=== PATIENT | female | born 1995 | race Caucasian/White ===

== ENCOUNTER 2021-09-14 09:03 | Day surgery (SDC) | payer OTHER ==
[2021-09-12 15:31] VITALS: BMI 29.7
[2021-09-14] MEDS ORDERED: EPINEPHrine 1:1,000 1,000 MCG/ML ML ONE (11:16)
[2021-09-14] MEDS ORDERED: VANCOMYCIN 1,000 MG VIAL (RESTRICTED TO ID ONLY) ONE (11:16)
[2021-09-14] MEDS ORDERED: BUPIVACAINE HCL 50 ML ONE (13:10)
[2021-09-14] MEDS ORDERED: MIDAZOLAM HCL 2 MG/2 ML SINGLE DOSE VIAL ONE (13:10)
[2021-09-14] MEDS ORDERED: BUPIVACAINE LIPOSOME/PF (EXPAREL) 266 MG/20 ML VIAL ONE (13:10)
[2021-09-14] MEDS ORDERED: SODIUM CHLORIDE 0.9% P/F 10 ML VIAL IJ ONE (13:11)
[2021-09-14] MEDS ORDERED: PROPOFOL 20 ML ONE ×2 (13:24)
[2021-09-14] MEDS ORDERED: KETOROLAC TROMETHAMINE 30 MG/1 ML VIAL ONE (13:25)
[2021-09-14] MEDS ORDERED: ONDANSETRON 4 MG/2 ML VIAL ONE ×3 (13:25→17:28)
[2021-09-14] MEDS ORDERED: ceFAZolin SODIUM 1 GM VIAL ONE (13:25)
[2021-09-14] MEDS ORDERED: DEXAMETHASONE SOD PHOSPHATE 4 MG/1 ML VIAL ONE (13:25)
[2021-09-14] MEDS ORDERED: TRANEXAMIC ACID 1000 MG/10 ML VIAL ONE (13:53)
[2021-09-14] MEDS ORDERED: BUPIVACAINE HCL/PF 0.25% (2.5MG/ML) 10 ML VIAL IJ ONE (14:30)
[2021-09-14] MEDS ORDERED: ESMOLOL HCL 100,000 MCG/10 ML VIAL ONE (15:18)
[2021-09-14] MEDS ORDERED: ONDANSETRON 4 MG/2 ML VIAL IVPUSH PRN (15:58)
[2021-09-14] MEDS ORDERED: oxyCODONE HCL 5 MG TABLET PO PRN (15:58)
[2021-09-14] MEDS ORDERED: ASPIRIN 81 MG CHEWABLE TABLETS PO ONE (15:58)
[2021-09-14] MEDS ORDERED: LACTATED RINGERS SOLUTION 1,000 ML IV SCH (16:00)
[2021-09-14 17:42] VITALS: PULSE 94
[2021-09-14 18:56] VITALS: BP 136/83; TEMP 97.8
== END 2021-09-14 18:57 | disposition home or self-care (01) ==
LOC: FASU 09:03
PROVIDERS: ATTEND Orthopaedic Surgery
PROC: 0MRP47Z Replacement of Left Knee Bursa and Ligament with Autologous Tissue Substitute, Percutaneous Endoscopic Approach (ICD-10-PCS; principal; 2021-09-14 14:30)
DX: S83.512A Sprain of anterior cruciate ligament of left knee, initial encounter (principal); M23.52 Chronic instability of knee, left knee; M65.862 Other synovitis and tenosynovitis, left lower leg; X58.XXXA Exposure to other specified factors, initial encounter; Y93.9 Activity, unspecified; Y92.9 Unspecified place or not applicable
CPT/HCPCS: 29888; C1713; 84703; 94760